=== PATIENT | male | born 1970 | race Caucasian/White ===

== ENCOUNTER 2019-02-25 16:34 | Emergency (ER) | payer MEDICAID ==
[~2019-02-25] VITALS: Ht 167.6 cm; Wt 65.3 kg
[2019-02-25 16:53] VITALS: Ht 167.6 cm; Wt 65.3 kg
[2019-02-25] MEDS ORDERED: KETOROLAC 60 MG INJ IM STA (18:52)
[2019-02-25] MEDS ORDERED: IBUP-1542 PO (22:03)
[2019-02-25 22:45] VITALS: BP 120/65; PULSE 69; RESP 20
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
== END 2019-02-25 22:46 | disposition home or self-care (01) ==
LOC: FTE 16:34
DX: S52.092A Other fracture of upper end of left ulna, initial encounter for closed fracture (principal); S19.9XXA Unspecified injury of neck, initial encounter; Y04.8XXA Assault by other bodily force, initial encounter
CPT/HCPCS: 29105; 72125; 73030; 73060; 73080; 96372; J1885; Z7502